=== PATIENT | male | born 2000 | race Caucasian/White ===

== ENCOUNTER 2022-02-06 17:49 | Inpatient (IN) | payer MEDICAID ==
[~2022-02-06] VITALS: Ht 175.3 cm; Wt 53.2 kg
[2022-02-06 18:33] LABS: Basophils # (auto) 0.1 10 ^3/uL (0-0.2); Basophils % (auto) 1.1 % (0.0-2.0); Eosinophils # (auto) 0 10 ^3/uL (0-0.8); Eosinophils % (auto) 0.7 % (0.0-7.0); Hematocrit 45.8 % (41.0-53.0); Lymphocytes # (auto) 1.5 10 ^3/uL (0.4-5.4); Mean Corpuscular Hgb Conc. 34.8 g/dL (32.0-36.0); Mean Corpuscular Volume 86.2 fL (80.0-100.0); Monocytes # (auto) 0.3 10 ^3/uL (0-1.3); Monocytes % (auto) 5.4 % (0.0-12.0); Neutrophils # (auto) 4.4 10 ^3/uL (1.6-8.6); Neutrophils % (auto) 68.8 % (37.0-80.0); Red Blood Cells 5.32 10^6/uL (4.5-5.90); Red Cell Distribution Width 12.7 % (11.8-14.3); White Blood Cell 6.3 10^3/uL (4.4-10.8)
[2022-02-06] MEDS ORDERED: SODIUM CHLORIDE 0.9% 1,000 ML IV ONE (18:45)
[2022-02-06 18:50] LABS: Albumin 3.6 g/dL (3.4-5.0); Calcium 8.4 mg/dL (8.5-10.1); Potassium 3.7 mmol/L (3.5-5.1)
[2022-02-06 18:54] LABS: Bilirubin, Total 1.4 mg/dL (0.2-1.0)
[2022-02-06 18:59] LABS: BUN/Creatinine Ratio 7.8
[2022-02-06 19:18] LABS: Urine Bacteria NONE SEEN /hpf (None Seen); Urine Blood Negative /uL (Negative); Urine Specific Gravity 1.042 (1.001-1.035); Urine WBC 2 /hpf (0 - 3)
[2022-02-06 19:22] LABS: Alcohol, Urine < 3.0 mg/dL (0-10); Amphetamine Screen, Urine NEGATIVE (NEGATIVE); Barbiturate Scree,Urine NEGATIVE (NEGATIVE); Benzodiazephine Screen, Urine NEGATIVE (NEGATIVE); Cannabinoid Screen, Urine NEGATIVE (NEGATIVE); Cocaine Screen, Urine NEGATIVE (NEGATIVE); Opiate Scree,Urine NEGATIVE (NEGATIVE); Phencyclidine Screen, Urine NEGATIVE (NEGATIVE)
[2022-02-06] MEDS ORDERED: metroNIDAZOLE 500MG/100ML 100 ML IV ONE (19:45)
[2022-02-06] MEDS ORDERED: PIPERACILLIN-TAZOB 3.375GM 100 ML IV ONE (19:45)
[2022-02-07] MEDS ORDERED: ONDANSETRON HCL 4 MG/2 ML VIAL IV PRN (00:45)
[2022-02-07] MEDS ORDERED: TEMAZEPAM 15 MG CAP PO PRN (00:45)
[2022-02-07] MEDS ORDERED: DEXTROSE (50%) 50ML SYRG IV PRN (00:45)
[2022-02-07] MEDS ORDERED: ACETAMINOPHEN 325 MG TAB PO PRN (00:45)
[2022-02-07] MEDS ORDERED: HYDROcodone-ACET 5/325MG TAB PO PRN (00:45)
[2022-02-07] MEDS: InsuLIN REG 1unit/0.01ml Soln (100units/ml) SC SCH ×6 (04:16→23:25)
[2022-02-07] MEDS: ACCU-CHEK COMFORT CURVE STRIP VI SCH ×6 (04:16→23:10)
[2022-02-07] MEDS: metroNIDAZOLE 500MG/100ML 100 ML IV SCH ×3 (06:06→22:25)
[2022-02-07] MEDS ORDERED: SODIUM CHLORIDE 0.9% 1,000 ML IV SCH (07:00)
[2022-02-07] MEDS: PANTOPRAZOLE 40 MG TAB PO SCH (09:49)
[2022-02-07 16:43] VITALS: BP 123/82
[2022-02-07] MEDS ORDERED: INSU100I44 SC (16:55)
[2022-02-07] MEDS ORDERED: INSUINJ37 SC (16:55)
[2022-02-07] MEDS: SODIUM CHLORIDE 0.9% 1,000 ML IV SCH ×2 (18:07→22:30)
[2022-02-07] MEDS ORDERED: INSULIN LANTUS (GLARGINE) 1 /0.01ml (100units/ml) SC SCH (22:00)
[2022-02-08] MEDS: ACCU-CHEK COMFORT CURVE STRIP VI SCH ×4 (04:26→16:00)
[2022-02-08] MEDS: InsuLIN REG 1unit/0.01ml Soln (100units/ml) SC SCH ×4 (04:35→16:38)
[2022-02-08 05:00] VITALS: BP 104/73
[2022-02-08] MEDS: metroNIDAZOLE 500MG/100ML 100 ML IV SCH ×2 (05:31→16:24)
[2022-02-08] MEDS: SODIUM CHLORIDE 0.9% 1,000 ML IV SCH (05:32)
[2022-02-08] MEDS: PANTOPRAZOLE 40 MG TAB PO SCH (08:06)
[2022-02-08 08:39] VITALS: BP 119/86
[2022-02-08 10:51] LABS: Basophils # (auto) 0 10 ^3/uL (0-0.2); Basophils % (auto) 0.8 % (0.0-2.0); Eosinophils # (auto) 0.1 10 ^3/uL (0-0.8); Eosinophils % (auto) 1.3 % (0.0-7.0); Hemoglobin 13.7 g/dL (13.5-17.5); Lymphocytes # (auto) 1.2 10 ^3/uL (0.4-5.4); Lymphocytes % (auto) 25.1 % (10.0-50.0); Mean Corpuscular Hemoglobin 30.2 pg (28.0-32.0); Mean Corpuscular Hgb Conc. 36.2 g/dL (32.0-36.0); Mean Corpuscular Volume 83.6 fL (80.0-100.0); Monocytes # (auto) 0.3 10 ^3/uL (0-1.3); Monocytes % (auto) 6.8 % (0.0-12.0); Neutrophils # (auto) 3.1 10 ^3/uL (1.6-8.6); Red Blood Cells 4.54 10^6/uL (4.5-5.90); Red Cell Distribution Width 12.8 % (11.8-14.3); White Blood Cell 4.7 10^3/uL (4.4-10.8)
[2022-02-08 11:08] LABS: Calcium 8.1 mg/dL (8.5-10.1); Potassium 3.2 mmol/L (3.5-5.1)
[2022-02-08 11:10] LABS: BUN/Creatinine Ratio 28.9
[2022-02-08] MEDS ORDERED: POTASSIUM EFFERVESENT TAB 25 MEQ PO ONE (12:15)
[2022-02-08 13:00] VITALS: BP 109/77
[2022-02-08] MEDS ORDERED: CIPR500T4 PO (13:38)
[2022-02-08] MEDS ORDERED: METR500T PO (13:38)
[2022-02-08 16:49] VITALS: BP 109/77
[2022-02-08 17:00] VITALS: BP 117/77
[2022-02-08 17:20] VITALS: BP 109/77
== END 2022-02-08 18:35 | disposition home or self-care (01) | DRG 249 ==
LOC: ER 17:52 → OVERFLOW 02-07 00:47 → WEST WING 02-07 15:59
PROVIDERS: ADMIT Nurse Practitioner; ATTEND Nurse Practitioner Acute Care
DX: K52.9 Noninfective gastroenteritis and colitis, unspecified (principal); R64 Cachexia; Z20.822 Contact with and (suspected) exposure to COVID-19; E10.65 Type 1 diabetes mellitus with hyperglycemia; E86.0 Dehydration; Z68.1 Body mass index [BMI] 19.9 or less, adult; Z91.14 Patient's other noncompliance with medication regimen
CPT/HCPCS: 36415; 74176; 80048; 80053; 80307; 81001; 82962; 83036; 83605; 83690; 85025; 87040; 87045; 87426; 87427; 87493; 96361; 96365; 96368; G0378; J1815; J2543; J3490

== ENCOUNTER 2022-04-03 19:44 | Emergency (ER) | payer OTHER, MEDICAID ==
[~2022-04-03] VITALS: Ht 177.8 cm; Wt 45.5 kg
[~2022-04-03 19:44] MED LIST: CIPR500T4 PO; INSU100I44 SC; INSUINJ37 SC; METR500T PO
[2022-04-03 20:44] VITALS: BP 103/68
[2022-04-03] MEDS ORDERED: SODIUM CHLORIDE 0.9% 1,000 ML IV ONE ×2 (20:45)
[2022-04-03] MEDS ORDERED: CLINDAMYCIN 600 MG/4 ML VL IM ONE (21:00)
[2022-04-03] MEDS ORDERED: cefTRIAXone SOD 1,000 MG VL IM ONE (21:00)
[2022-04-03] MEDS ORDERED: CLINDAMYCIN HCL 150 MG CAP PO ONE (21:15)
[2022-04-03 21:56] LABS: Basophils # (auto) 0.1 10 ^3/uL (0-0.2); Basophils % (auto) 0.9 % (0.0-2.0); Eosinophils # (auto) 0.1 10 ^3/uL (0-0.8); Eosinophils % (auto) 1.5 % (0.0-7.0); Hematocrit 42.8 % (41.0-53.0); Hemoglobin 14.9 g/dL (13.5-17.5); Lymphocytes # (auto) 1.3 10 ^3/uL (0.4-5.4); Lymphocytes % (auto) 15.9 % (10.0-50.0); Mean Corpuscular Hemoglobin 30.4 pg (28.0-32.0); Mean Corpuscular Hgb Conc. 34.9 g/dL (32.0-36.0); Mean Corpuscular Volume 86.9 fL (80.0-100.0); Monocytes # (auto) 0.6 10 ^3/uL (0-1.3); Monocytes % (auto) 8.1 % (0.0-12.0); Neutrophils # (auto) 5.9 10 ^3/uL (1.6-8.6); Neutrophils % (auto) 73.6 % (37.0-80.0); Red Blood Cells 4.92 10^6/uL (4.5-5.90); Red Cell Distribution Width 13.3 % (11.8-14.3)
[2022-04-03 22:12] LABS: Albumin 3.5 g/dL (3.4-5.0); Calcium 8.8 mg/dL (8.5-10.1); Potassium 3.7 mmol/L (3.5-5.1)
[2022-04-03 22:18] LABS: BUN/Creatinine Ratio 7.1; Total Protein 6.3 g/dL (6.4-8.2)
[2022-04-04] MEDS ORDERED: CLIN150C PO (02:11)
[2022-04-04] MEDS ORDERED: CEPH-510 PO (02:11)
[2022-04-04] MEDS ORDERED: INSULIN LANTUS (GLARGINE) 1 /0.01ml (100units/ml) SC ONE (02:15)
[2022-04-04] MEDS ORDERED: DEXTROSE (50%) 50ML SYRG IV PRN (02:15)
[2022-04-04] MEDS ORDERED: InsuLIN R (HUMAN) 100 UNITS in SODIUM CHL 0.9% 99 ML IV SCH (02:15)
[2022-04-04] MEDS ORDERED: ACCU-CHEK COMFORT CURVE STRIP VI SCH (03:00)
[2022-04-05] MEDS ORDERED: INSULIN LANTUS (GLARGINE) 1 /0.01ml (100units/ml) SC SCH (10:00)
== END 2022-04-04 03:14 | disposition left against medical advice (07) ==
LOC: ER 19:44
DX: K02.9 Dental caries, unspecified (principal); E11.65 Type 2 diabetes mellitus with hyperglycemia; Z79.899 Other long term (current) drug therapy; Z79.84 Long term (current) use of oral hypoglycemic drugs
CPT/HCPCS: 36415; 80053; 82010; 82962; 85025; 96372; 99283; J0696; J1815

== ENCOUNTER 2022-04-10 15:13 | Emergency (ER) | payer OTHER, MEDICAID ==
[~2022-04-10] VITALS: Ht 177.8 cm; Wt 50.0 kg
[~2022-04-10 15:13] MED LIST changes: +CEPH-510 PO; +CLIN150C PO
[2022-04-10 16:20] LABS: Basophils # (auto) 0.1 10 ^3/uL (0-0.2); Basophils % (auto) 0.6 % (0.0-2.0); Eosinophils # (auto) 0 10 ^3/uL (0-0.8); Eosinophils % (auto) 0.2 % (0.0-7.0); Hematocrit 42.5 % (41.0-53.0); Hemoglobin 14.2 g/dL (13.5-17.5); Lymphocytes # (auto) 0.6 10 ^3/uL (0.4-5.4); Lymphocytes % (auto) 6.6 % (10.0-50.0); Mean Corpuscular Hemoglobin 29.8 pg (28.0-32.0); Mean Corpuscular Hgb Conc. 33.4 g/dL (32.0-36.0); Mean Corpuscular Volume 89.4 fL (80.0-100.0); Monocytes # (auto) 0.5 10 ^3/uL (0-1.3); Neutrophils # (auto) 7.6 10 ^3/uL (1.6-8.6); Neutrophils % (auto) 86.6 % (37.0-80.0); Nucleated Red Blood Cells % 0.1 %; Red Blood Cells 4.76 10^6/uL (4.5-5.90); Red Cell Distribution Width 13.2 % (11.8-14.3); White Blood Cell 8.8 10^3/uL (4.4-10.8)
[2022-04-10] MEDS ORDERED: MORPHINE SULFATE 4 MG/ML SYR/VIAL IV ONE (16:30)
[2022-04-10] MEDS ORDERED: CLINDAMYCIN 600MG IV 50 ML IV ONE (16:30)
[2022-04-10] MEDS ORDERED: ONDANSETRON HCL 4 MG/2 ML VIAL IV ONE (16:30)
[2022-04-10] MEDS ORDERED: InsuLIN REG 1unit/0.01ml Soln (100units/ml) IV ONE (16:30)
[2022-04-10] MEDS ORDERED: SODIUM CHLORIDE 0.9% 1,000 ML IV ONE ×2 (16:30→21:30)
[2022-04-10 17:11] LABS: BUN/Creatinine Ratio 13.1; Bilirubin, Total 0.9 mg/dL (0.2-1.0); Calcium 8.9 mg/dL (8.5-10.1); Potassium 4.2 mmol/L (3.5-5.1)
[2022-04-10 17:12] LABS: Total Protein 6.9 g/dL (6.4-8.2)
[2022-04-10 19:21] LABS: Urine WBC None Seen /hpf (0 - 3)
[2022-04-10 19:35] LABS: Urine Bacteria NONE SEEN /hpf (None Seen); Urine Blood Negative /uL (Negative); Urine Specific Gravity 1.036 (1.001-1.035)
[2022-04-10] MEDS ORDERED: DEXTROSE (50%) 50ML SYRG IV PRN (19:45)
[2022-04-10] MEDS ORDERED: INSULIN LANTUS (GLARGINE) 1 /0.01ml (100units/ml) SC ONE (19:45)
[2022-04-10] MEDS ORDERED: InsuLIN R (HUMAN) 100 UNITS in SODIUM CHL 0.9% 99 ML IV SCH ×2 (19:45→20:15)
[2022-04-10] MEDS ORDERED: IOHEXOL 350 MG/ML 100ML IJ ONE (19:56)
[2022-04-10] MEDS ORDERED: InsuLIN REG 1unit/0.01ml Soln (100units/ml) ONE (20:25)
[2022-04-10] MEDS: ACCU-CHEK COMFORT CURVE STRIP VI SCH ×2 (21:13→22:43)
[2022-04-11] MEDS: ACCU-CHEK COMFORT CURVE STRIP VI SCH ×4 (00:28→04:34)
[2022-04-11] MEDS ORDERED: ONDANSETRON HCL 4 MG/2 ML VIAL IV ONE (00:30)
[2022-04-11] MEDS ORDERED: HYDROmorphone HCL 2 MG/ML VL/or syr IV ONE (00:30)
[2022-04-11 02:10] LABS: Albumin 2.4 g/dL (3.4-5.0); BUN/Creatinine Ratio 17.1; Calcium 8.2 mg/dL (8.5-10.1)
[2022-04-11 02:13] LABS: Bilirubin, Total 0.5 mg/dL (0.2-1.0); Total Protein 5.6 g/dL (6.4-8.2)
[2022-04-11] MEDS ORDERED: POTASSIUM CHL 20MEQ/100ML 100 ML IV ONE (03:15)
[2022-04-11] MEDS ORDERED: POTASSIUM CHL 20 Meq TABLET PO ONE (03:15)
[2022-04-11] MEDS ORDERED: LACTATED RINGER'S 1,000 ML IV ONE (03:15)
[2022-04-11] MEDS ORDERED: DEXTROSE (50%) 50ML SYRG IV PRN (04:45)
[2022-04-11 04:50] VITALS: BP 110/74
[2022-04-11] MEDS ORDERED: ACCU-CHEK COMFORT CURVE STRIP VI SCH (08:00)
[2022-04-11] MEDS ORDERED: InsuLIN REG 1unit/0.01ml Soln (100units/ml) SC SCH (08:00)
[2022-04-11] MEDS ORDERED: INSULIN LANTUS (GLARGINE) 1 /0.01ml (100units/ml) SC SCH (10:00)
== END 2022-04-11 05:25 | disposition short-term general hospital (02) ==
LOC: ER 15:13
DX: E11.65 Type 2 diabetes mellitus with hyperglycemia (principal); K12.2 Cellulitis and abscess of mouth; Z79.4 Long term (current) use of insulin; Z79.2 Long term (current) use of antibiotics; Z79.899 Other long term (current) drug therapy
CPT/HCPCS: 36415; 70491; 80053; 81001; 82010; 82962; 83605; 83735; 85025; 87040; 96365; 96366; 96368; 96375; 96376; 99285; J1170; J1815; J2270; J2405; J3480; J3490; Q9967

== ENCOUNTER 2022-06-27 22:37 | Inpatient (IN) | payer MEDICAID ==
[~2022-06-27] VITALS: Ht 172.7 cm; Wt 54.0 kg
[2022-06-27 23:28] LABS: Basophils # (auto) 0.1 10 ^3/uL (0-0.2); Basophils % (auto) 1.3 % (0.0-2.0); Eosinophils # (auto) 0 10 ^3/uL (0-0.8); Eosinophils % (auto) 0.4 % (0.0-7.0); Hematocrit 41.5 % (41.0-53.0); Hemoglobin 13.4 g/dL (13.5-17.5); Lymphocytes # (auto) 0.8 10 ^3/uL (0.4-5.4); Lymphocytes % (auto) 14.6 % (10.0-50.0); Mean Corpuscular Hgb Conc. 32.4 g/dL (32.0-36.0); Mean Corpuscular Volume 92.6 fL (80.0-100.0); Monocytes # (auto) 0.2 10 ^3/uL (0-1.3); Monocytes % (auto) 3.9 % (0.0-12.0); Neutrophils # (auto) 4.1 10 ^3/uL (1.6-8.6); Neutrophils % (auto) 79.8 % (37.0-80.0); Nucleated Red Blood Cells % 0.1 %; Red Blood Cells 4.48 10^6/uL (4.5-5.90); Red Cell Distribution Width 13.7 % (11.8-14.3); White Blood Cell 5.2 10^3/uL (4.4-10.8)
[2022-06-27 23:39] LABS: Albumin 3.2 g/dL (3.4-5.0); Calcium 8.2 mg/dL (8.5-10.1); Potassium 4.4 mmol/L (3.5-5.1)
[2022-06-27 23:42] LABS: Bilirubin, Total 1.2 mg/dL (0.2-1.0); Total Protein 6.4 g/dL (6.4-8.2)
[2022-06-27] MEDS ORDERED: SODIUM CHLORIDE 0.9% 1,000 ML IV ONE ×2 (23:45)
[2022-06-27 23:56] LABS: Urine Bacteria NONE SEEN /hpf (None Seen); Urine Blood Negative /uL (Negative); Urine Specific Gravity 1.032 (1.001-1.035); Urine WBC <1 /hpf (0 - 3)
[2022-06-28 00:02] LABS: BUN/Creatinine Ratio 17.4 (10.0-20.0)
[2022-06-28] MEDS ORDERED: INSULIN LANTUS (GLARGINE) 1 /0.01ml (100units/ml) SC ONE ×2 (01:00→11:45)
[2022-06-28] MEDS ORDERED: DEXTROSE (50%) 50ML SYRG IV PRN ×2 (01:00→04:45)
[2022-06-28] MEDS ORDERED: InsuLIN R (HUMAN) 100 UNITS in SODIUM CHL 0.9% 99 ML IV SCH (01:00)
[2022-06-28] MEDS: ACCU-CHEK COMFORT CURVE STRIP VI SCH ×5 (01:18→22:03)
[2022-06-28] MEDS ORDERED: InsuLIN REG 1unit/0.01ml Soln (100units/ml) ONE (01:26)
[2022-06-28] MEDS ORDERED: MORPHINE SULFATE INJ 2 MG/ml SYRG IV ONE (03:30)
[2022-06-28] MEDS ORDERED: ONDANSETRON HCL 4 MG/2 ML VIAL IV PRN (04:45)
[2022-06-28] MEDS ORDERED: ACETAMINOPHEN 325 MG TAB PO PRN (04:45)
[2022-06-28] MEDS: cefTRIAXone 1GM/50ML D5W 50 ML IV SCH (05:20)
[2022-06-28] MEDS ORDERED: CLINDAMYCIN 600MG IV 50 ML IV SCH (06:00)
[2022-06-28] MEDS: CLINDAMYCIN 300MG IV 100 ML IV SCH ×2 (07:04→15:03)
[2022-06-28] MEDS ORDERED: ACCU-CHEK COMFORT CURVE STRIP VI SCH (08:00)
[2022-06-28] MEDS ORDERED: InsuLIN REG 1unit/0.01ml Soln (100units/ml) SC SCH ×2 (08:00→22:00)
[2022-06-28] MEDS: HYDROcodone-ACET 5/325MG TAB PO PRN ×2 (08:02→12:19)
[2022-06-28] MEDS ORDERED: VANCOMYCIN 1GM/250ML 250 ML IV ONE (16:15)
[2022-06-28] MEDS ORDERED: VANCOMYCIN PER PHARMACY 0 MG IV SCH (16:15)
[2022-06-28] MEDS: InsuLIN REG 1unit/0.01ml Soln (100units/ml) SC SCH (17:02)
[2022-06-28] MEDS: MORPHINE SULFATE INJ 2 MG/ml SYRG IV PRN (18:12)
[2022-06-28] MEDS: VANCOMYCIN 750mg/250ml 250 ML IV SCH (23:57)
[2022-06-29] MEDS: HYDROcodone-ACET 5/325MG TAB PO PRN ×3 (00:05→21:03)
[2022-06-29] MEDS: MORPHINE SULFATE INJ 2 MG/ml SYRG IV PRN ×2 (03:12→16:59)
[2022-06-29 05:10] LABS: Basophils # (auto) 0.1 10 ^3/uL (0-0.2); Basophils % (auto) 0.9 % (0.0-2.0); Eosinophils # (auto) 0.1 10 ^3/uL (0-0.8); Eosinophils % (auto) 0.9 % (0.0-7.0); Hematocrit 34.7 % (41.0-53.0); Hemoglobin 12.4 g/dL (13.5-17.5); Lymphocytes # (auto) 1.5 10 ^3/uL (0.4-5.4); Lymphocytes % (auto) 20.7 % (10.0-50.0); Mean Corpuscular Hemoglobin 30.4 pg (28.0-32.0); Mean Corpuscular Hgb Conc. 35.7 g/dL (32.0-36.0); Mean Corpuscular Volume 85.2 fL (80.0-100.0); Monocytes # (auto) 0.4 10 ^3/uL (0-1.3); Monocytes % (auto) 5.3 % (0.0-12.0); Neutrophils # (auto) 5.3 10 ^3/uL (1.6-8.6); Neutrophils % (auto) 72.2 % (37.0-80.0); Nucleated Red Blood Cells % 0.2 %; Red Blood Cells 4.07 10^6/uL (4.5-5.90); Red Cell Distribution Width 13.1 % (11.8-14.3); White Blood Cell 7.3 10^3/uL (4.4-10.8)
[2022-06-29 05:27] LABS: Albumin 2.5 g/dL (3.4-5.0); Calcium 7.6 mg/dL (8.5-10.1); Potassium 3.9 mmol/L (3.5-5.1)
[2022-06-29 05:32] LABS: Bilirubin, Total 0.6 mg/dL (0.2-1.0)
[2022-06-29] MEDS: ACCU-CHEK COMFORT CURVE STRIP VI SCH ×4 (06:39→21:09)
[2022-06-29] MEDS: InsuLIN REG 1unit/0.01ml Soln (100units/ml) SC SCH ×4 (06:45→21:12)
[2022-06-29] MEDS: cefTRIAXone 1GM/50ML D5W 50 ML IV SCH (07:54)
[2022-06-29] MEDS ORDERED: INSULIN LANTUS (GLARGINE) 1 /0.01ml (100units/ml) SC SCH (10:00)
[2022-06-29 12:28] VITALS: BP 103/71
[2022-06-29 13:00] VITALS: BP 103/71
[2022-06-29] MEDS: VANCOMYCIN 750mg/250ml 250 ML IV SCH ×2 (13:38→22:34)
[2022-06-29 17:00] VITALS: BP 97/63
[2022-06-29] MEDS ORDERED: INSULIN LANTUS (GLARGINE) 1 /0.01ml (100units/ml) SC ONE (17:00)
[2022-06-29] MEDS ORDERED: DEXTROSE (50%) 50ML SYRG IV PRN ×2 (17:15→17:30)
[2022-06-29 22:00] VITALS: BP 104/75
[2022-06-29] MEDS ORDERED: ACCU-CHEK COMFORT CURVE STRIP VI SCH (22:00)
[2022-06-29] MEDS ORDERED: InsuLIN REG 1unit/0.01ml Soln (100units/ml) SC SCH (22:00)
[2022-06-30] MEDS: MORPHINE SULFATE INJ 2 MG/ml SYRG IV PRN ×3 (02:44→23:19)
[2022-06-30 05:00] VITALS: BP 111/76
[2022-06-30] MEDS: ACCU-CHEK COMFORT CURVE STRIP VI SCH ×4 (06:33→21:56)
[2022-06-30] MEDS: InsuLIN REG 1unit/0.01ml Soln (100units/ml) SC SCH ×5 (06:40→21:58)
[2022-06-30] MEDS: HYDROcodone-ACET 5/325MG TAB PO PRN ×2 (06:41→18:46)
[2022-06-30 06:43] LABS: Basophils # (auto) 0 10 ^3/uL (0-0.2); Eosinophils # (auto) 0 10 ^3/uL (0-0.8); Hematocrit 35.6 % (41.0-53.0); Hemoglobin 12.3 g/dL (13.5-17.5); Lymphocytes # (auto) 1.2 10 ^3/uL (0.4-5.4); Lymphocytes % (auto) 27.7 % (10.0-50.0); Mean Corpuscular Hemoglobin 29.9 pg (28.0-32.0); Mean Corpuscular Hgb Conc. 34.5 g/dL (32.0-36.0); Mean Corpuscular Volume 86.4 fL (80.0-100.0); Monocytes # (auto) 0.3 10 ^3/uL (0-1.3); Monocytes % (auto) 6.5 % (0.0-12.0); Neutrophils # (auto) 2.8 10 ^3/uL (1.6-8.6); Neutrophils % (auto) 63.8 % (37.0-80.0); Nucleated Red Blood Cells % 0.1 %; Red Blood Cells 4.12 10^6/uL (4.5-5.90); Red Cell Distribution Width 13.4 % (11.8-14.3); White Blood Cell 4.4 10^3/uL (4.4-10.8)
[2022-06-30 06:47] LABS: BUN/Creatinine Ratio 20.4 (10.0-20.0); Calcium 8.1 mg/dL (8.5-10.1); Potassium 3.6 mmol/L (3.5-5.1)
[2022-06-30] MEDS: cefTRIAXone 1GM/50ML D5W 50 ML IV SCH (08:49)
[2022-06-30] MEDS: VANCOMYCIN 750mg/250ml 250 ML IV SCH ×3 (08:50→22:06)
[2022-06-30 09:00] VITALS: BP 109/73
[2022-06-30] MEDS: INSULIN LANTUS (GLARGINE) 1 /0.01ml (100units/ml) SC SCH (10:00)
[2022-06-30 11:50] LABS: Hepatitis B Core IgM Negative
[2022-06-30 11:51] LABS: Hepatitis A Ab IgM Negative; Hepatitis C Antibody Negative (Negative)
[2022-06-30 13:24] VITALS: BP 116/84
[2022-06-30 17:00] VITALS: BP 109/60
[2022-06-30 22:00] VITALS: BP 102/71
[2022-07-01 05:00] VITALS: BP 104/68
[2022-07-01 06:07] LABS: Basophils # (auto) 0 10 ^3/uL (0-0.2); Eosinophils # (auto) 0 10 ^3/uL (0-0.8); Eosinophils % (auto) 0.9 % (0.0-7.0); Hematocrit 36.4 % (41.0-53.0); Hemoglobin 12.9 g/dL (13.5-17.5); Lymphocytes # (auto) 1.2 10 ^3/uL (0.4-5.4); Lymphocytes % (auto) 26.4 % (10.0-50.0); Mean Corpuscular Hemoglobin 29.9 pg (28.0-32.0); Mean Corpuscular Hgb Conc. 35.3 g/dL (32.0-36.0); Mean Corpuscular Volume 84.6 fL (80.0-100.0); Monocytes # (auto) 0.2 10 ^3/uL (0-1.3); Monocytes % (auto) 5.5 % (0.0-12.0); Neutrophils % (auto) 66.2 % (37.0-80.0); Nucleated Red Blood Cells % 0.1 %; Red Cell Distribution Width 13.5 % (11.8-14.3); White Blood Cell 4.5 10^3/uL (4.4-10.8)
[2022-07-01 06:23] LABS: BUN/Creatinine Ratio 23.8 (10.0-20.0); Calcium 8.1 mg/dL (8.5-10.1); Potassium 3.9 mmol/L (3.5-5.1)
[2022-07-01] MEDS: VANCOMYCIN 750mg/250ml 250 ML IV SCH (06:36)
[2022-07-01] MEDS: ACCU-CHEK COMFORT CURVE STRIP VI SCH ×2 (06:36→11:30)
[2022-07-01] MEDS: InsuLIN REG 1unit/0.01ml Soln (100units/ml) SC SCH ×2 (06:43→12:26)
[2022-07-01 09:00] VITALS: BP 113/77
[2022-07-01] MEDS: cefTRIAXone 1GM/50ML D5W 50 ML IV SCH (09:20)
[2022-07-01] MEDS ORDERED: DOXY-332 PO (09:52)
[2022-07-01] MEDS ORDERED: INSUINJ37 SC (09:52)
[2022-07-01] MEDS: HYDROcodone-ACET 5/325MG TAB PO PRN (09:54)
[2022-07-01] MEDS: INSULIN LANTUS (GLARGINE) 1 /0.01ml (100units/ml) SC SCH (10:00)
[2022-07-01 13:00] VITALS: BP 117/83
[2022-07-01] MEDS ORDERED: VANCOMYCIN 1GM/250ML 250 ML IV SCH (14:00)
== END 2022-07-01 16:05 | disposition home or self-care (01) | DRG 383 ==
LOC: ER 22:37 → OVERFLOW 06-28 04:36 → CENTRAL 06-29 11:56
PROVIDERS: ADMIT Nurse Practitioner; ATTEND Internal Medicine Pulmonary Disease
DX: L03.211 Cellulitis of face (principal); R64 Cachexia; L02.01 Cutaneous abscess of face; E10.65 Type 1 diabetes mellitus with hyperglycemia; L03.031 Cellulitis of right toe; L03.032 Cellulitis of left toe; L60.0 Ingrowing nail; Z20.822 Contact with and (suspected) exposure to COVID-19; Z79.4 Long term (current) use of insulin; Z91.199 Patient's noncompliance with other medical treatment and regimen due to unspecified reason; Z80.3 Family history of malignant neoplasm of breast; Z83.3 Family history of diabetes mellitus; Z68.1 Body mass index [BMI] 19.9 or less, adult
CPT/HCPCS: 36415; 70360; 70486; 76536; 76705; 80048; 80053; 80074; 80202; 81001; 82962; 83036; 83605; 83880; 85025; 87077; 87205; 87426; 96361; 96365; 96366; 96372; 96375; 99291; G0378; J0696; J1815; J2405; J3490

== ENCOUNTER 2022-07-14 16:06 | Inpatient (IN) | payer MEDICAID, OTHER ==
[~2022-07-14] VITALS: Ht 177.8 cm; Wt 53.0 kg
[~2022-07-14 16:06] MED LIST changes: -CEPH-510 PO; -CIPR500T4 PO; -CLIN150C PO; +DOXY-332 PO; -METR500T PO
[2022-07-14] MEDS ORDERED: SODIUM CHLORIDE 0.9% 2,000 ML IV ONE (17:00)
[2022-07-14 17:09] LABS: Basophils # (auto) 0.1 10 ^3/uL (0-0.2); Basophils % (auto) 1.2 % (0.0-2.0); Eosinophils # (auto) 0 10 ^3/uL (0-0.8); Eosinophils % (auto) 0.5 % (0.0-7.0); Hematocrit 42.6 % (41.0-53.0); Hemoglobin 13.6 g/dL (13.5-17.5); Lymphocytes # (auto) 0.7 10 ^3/uL (0.4-5.4); Lymphocytes % (auto) 10.4 % (10.0-50.0); Mean Corpuscular Hemoglobin 29.5 pg (28.0-32.0); Mean Corpuscular Volume 92.2 fL (80.0-100.0); Monocytes # (auto) 0.2 10 ^3/uL (0-1.3); Monocytes % (auto) 3.2 % (0.0-12.0); Neutrophils # (auto) 5.8 10 ^3/uL (1.6-8.6); Neutrophils % (auto) 84.7 % (37.0-80.0); Nucleated Red Blood Cells % 0.1 %; Red Blood Cells 4.62 10^6/uL (4.5-5.90); Red Cell Distribution Width 13.8 % (11.8-14.3); White Blood Cell 6.8 10^3/uL (4.4-10.8)
[2022-07-14 17:23] LABS: Albumin 3.4 g/dL (3.4-5.0); Calcium 8.6 mg/dL (8.5-10.1); Potassium 4.3 mmol/L (3.5-5.1)
[2022-07-14 17:25] LABS: Bilirubin, Total 1.9 mg/dL (0.2-1.0); Total Protein 6.3 g/dL (6.4-8.2)
[2022-07-14 17:49] LABS: BUN/Creatinine Ratio 12.2 (10.0-20.0)
[2022-07-14] MEDS ORDERED: DEXTROSE (50%) 50ML SYRG IV PRN (18:15)
[2022-07-14] MEDS ORDERED: InsuLIN R (HUMAN) 100 UNITS in SODIUM CHL 0.9% 99 ML IV SCH (18:15)
[2022-07-14 18:56] LABS: Urine Bacteria NONE SEEN /hpf (None Seen); Urine Blood Negative /uL (Negative); Urine Mucus FEW (None Seen); Urine Specific Gravity 1.032 (1.001-1.035); Urine WBC <1 /hpf (0 - 3)
[2022-07-14] MEDS ORDERED: ACETAMINOPHEN 500 MG TAB PO ONE (19:30)
[2022-07-14] MEDS ORDERED: ACETAMINOPHEN 325 MG TAB PO ONE (19:30)
[2022-07-14] MEDS ORDERED: ACCU-CHEK COMFORT CURVE STRIP VI SCH ×2 (19:30→20:30)
[2022-07-14] MEDS: D5W/SOD CHL 0.45%/KCL 20MEQ 1,000 ML IV SCH (19:37)
[2022-07-14 19:38] LABS: Calcium 8.6 mg/dL (8.5-10.1); Potassium 4.6 mmol/L (3.5-5.1)
[2022-07-14] MEDS ORDERED: NITROGLYCERIN 0.4 MG SL TAB SL PRN (20:15)
[2022-07-14] MEDS ORDERED: MORPHINE SULFATE INJ 2 MG/ml SYRG IV PRN (20:15)
[2022-07-14] MEDS ORDERED: ACETAMINOPHEN 325 MG TAB PO PRN (20:15)
[2022-07-14] MEDS ORDERED: PANTOPRAZOLE 40 MG/10 ML VIAL INJ IV ONE (20:15)
[2022-07-14 20:28] LABS: BUN/Creatinine Ratio 12.8 (10.0-20.0)
[2022-07-14] MEDS: ACCU-CHEK COMFORT CURVE STRIP VI SCH ×2 (20:45→22:56)
[2022-07-15] MEDS: ACCU-CHEK COMFORT CURVE STRIP VI SCH ×9 (00:28→20:18)
[2022-07-15] MEDS: HYDROcodone-ACET 5/325MG TAB PO PRN ×4 (00:35→21:59)
[2022-07-15 01:21] LABS: Albumin 2.9 g/dL (3.4-5.0); BUN/Creatinine Ratio 13.3 (10.0-20.0); Calcium 8.2 mg/dL (8.5-10.1); Potassium 3.2 mmol/L (3.5-5.1)
[2022-07-15 01:24] LABS: Total Protein 5.6 g/dL (6.4-8.2)
[2022-07-15] MEDS: D5W/SOD CHL 0.45%/KCL 20MEQ 1,000 ML IV SCH (02:52)
[2022-07-15 06:29] LABS: Basophils # (auto) 0.1 10 ^3/uL (0-0.2); Basophils % (auto) 1.5 % (0.0-2.0); Eosinophils # (auto) 0.1 10 ^3/uL (0-0.8); Eosinophils % (auto) 1.8 % (0.0-7.0); Hematocrit 36.5 % (41.0-53.0); Lymphocytes # (auto) 1.7 10 ^3/uL (0.4-5.4); Lymphocytes % (auto) 23.4 % (10.0-50.0); Mean Corpuscular Hgb Conc. 35.7 g/dL (32.0-36.0); Mean Corpuscular Volume 83.8 fL (80.0-100.0); Monocytes # (auto) 0.3 10 ^3/uL (0-1.3); Monocytes % (auto) 4.7 % (0.0-12.0); Neutrophils # (auto) 5.1 10 ^3/uL (1.6-8.6); Neutrophils % (auto) 68.6 % (37.0-80.0); Nucleated Red Blood Cells % 0.1 %; Red Blood Cells 4.35 10^6/uL (4.5-5.90); Red Cell Distribution Width 13.1 % (11.8-14.3); White Blood Cell 7.4 10^3/uL (4.4-10.8)
[2022-07-15 06:44] LABS: Potassium 3.4 mmol/L (3.5-5.1)
[2022-07-15 06:51] LABS: Albumin 2.9 g/dL (3.4-5.0); BUN/Creatinine Ratio 22.9 (10.0-20.0); Calcium 8.4 mg/dL (8.5-10.1)
[2022-07-15 06:54] LABS: Total Protein 5.4 g/dL (6.4-8.2)
[2022-07-15] MEDS ORDERED: DEXTROSE (50%) 50ML SYRG IV PRN (07:00)
[2022-07-15] MEDS ORDERED: D5W/SOD CHLO 0.9% 1,000 ML IV SCH (07:00)
[2022-07-15] MEDS ORDERED: POTASSIUM CHL 20 Meq TABLET PO ONE (07:00)
[2022-07-15] MEDS: InsuLIN REG 1unit/0.01ml Soln (100units/ml) SC SCH ×4 (08:27→20:19)
[2022-07-15] MEDS: PANTOPRAZOLE 40 MG/10 ML VIAL INJ IV SCH (10:36)
[2022-07-15] MEDS: SOD CHL 0.45% WITH 20MEQ KCL 1,000 ML IV SCH (12:22)
[2022-07-15] MEDS: INSULIN LANTUS (GLARGINE) 1 /0.01ml (100units/ml) SC SCH (12:24)
[2022-07-15 12:34] LABS: Albumin 2.6 g/dL (3.4-5.0); Potassium 3.6 mmol/L (3.5-5.1)
[2022-07-15 12:38] LABS: BUN/Creatinine Ratio 16.2 (10.0-20.0); Bilirubin, Total 1.4 mg/dL (0.2-1.0)
[2022-07-15] MEDS ORDERED: DIPHENOXYLATE W/ATROPINE 2.5 MG TAB PO PRN (13:15)
[2022-07-15] MEDS ORDERED: INSU-567 XX (13:20)
[2022-07-15] MEDS: FLORASTOR (S. BOULARDII) 250 MG CAP PO SCH (14:00)
[2022-07-15 22:00] VITALS: BP 100/73
[2022-07-16] MEDS: ACCU-CHEK COMFORT CURVE STRIP VI SCH ×7 (04:19→23:44)
[2022-07-16] MEDS: InsuLIN REG 1unit/0.01ml Soln (100units/ml) SC SCH ×7 (04:19→23:46)
[2022-07-16 05:00] VITALS: BP 149/83
[2022-07-16] MEDS: SOD CHL 0.45% WITH 20MEQ KCL 1,000 ML IV SCH ×3 (06:34→17:30)
[2022-07-16 07:00] LABS: Basophils # (auto) 0 10 ^3/uL (0-0.2); Basophils % (auto) 0.8 % (0.0-2.0); Eosinophils # (auto) 0.1 10 ^3/uL (0-0.8); Eosinophils % (auto) 1.5 % (0.0-7.0); Hematocrit 37.1 % (41.0-53.0); Hemoglobin 13.4 g/dL (13.5-17.5); Lymphocytes # (auto) 1.1 10 ^3/uL (0.4-5.4); Lymphocytes % (auto) 20.9 % (10.0-50.0); Mean Corpuscular Hemoglobin 30.2 pg (28.0-32.0); Mean Corpuscular Volume 83.6 fL (80.0-100.0); Monocytes # (auto) 0.2 10 ^3/uL (0-1.3); Monocytes % (auto) 4.2 % (0.0-12.0); Neutrophils # (auto) 3.9 10 ^3/uL (1.6-8.6); Neutrophils % (auto) 72.6 % (37.0-80.0); Nucleated Red Blood Cells % 0.1 %; Red Blood Cells 4.44 10^6/uL (4.5-5.90); Red Cell Distribution Width 13.1 % (11.8-14.3); White Blood Cell 5.4 10^3/uL (4.4-10.8)
[2022-07-16 07:27] LABS: Potassium 3.6 mmol/L (3.5-5.1)
[2022-07-16 07:35] LABS: Albumin 2.8 g/dL (3.4-5.0); Bilirubin, Total 0.7 mg/dL (0.2-1.0); Calcium 7.8 mg/dL (8.5-10.1); Total Protein 5.6 g/dL (6.4-8.2)
[2022-07-16] MEDS: HYDROcodone-ACET 5/325MG TAB PO PRN ×3 (08:16→20:23)
[2022-07-16 09:00] VITALS: BP 109/80
[2022-07-16] MEDS: FLORASTOR (S. BOULARDII) 250 MG CAP PO SCH (09:33)
[2022-07-16] MEDS: PANTOPRAZOLE 40 MG/10 ML VIAL INJ IV SCH (09:33)
[2022-07-16] MEDS: INSULIN LANTUS (GLARGINE) 1 /0.01ml (100units/ml) SC SCH (09:40)
[2022-07-16 12:49] VITALS: BP 90/50
[2022-07-16 17:46] VITALS: BP 95/66
[2022-07-16 18:50] LABS: Albumin 3.2 g/dL (3.4-5.0); Calcium 8.5 mg/dL (8.5-10.1)
[2022-07-16 18:53] LABS: BUN/Creatinine Ratio 9.4 (10.0-20.0); Bilirubin, Total 0.7 mg/dL (0.2-1.0); Total Protein 6.4 g/dL (6.4-8.2)
[2022-07-16 22:00] VITALS: BP 115/76
[2022-07-17] MEDS: HYDROcodone-ACET 5/325MG TAB PO PRN (01:42)
[2022-07-17] MEDS: SOD CHL 0.45% WITH 20MEQ KCL 1,000 ML IV SCH ×3 (03:38→23:30)
[2022-07-17] MEDS: ACCU-CHEK COMFORT CURVE STRIP VI SCH ×5 (04:39→20:00)
[2022-07-17] MEDS: InsuLIN REG 1unit/0.01ml Soln (100units/ml) SC SCH ×5 (04:40→21:51)
[2022-07-17 05:00] VITALS: BP 96/76
[2022-07-17 06:00] VITALS: BP 107/73
[2022-07-17] MEDS: PANTOPRAZOLE 40 MG/10 ML VIAL INJ IV SCH (10:24)
[2022-07-17] MEDS: FLORASTOR (S. BOULARDII) 250 MG CAP PO SCH (10:26)
[2022-07-17] MEDS: INSULIN LANTUS (GLARGINE) 1 /0.01ml (100units/ml) SC SCH (10:30)
[2022-07-17] MEDS: MORPHINE SULFATE INJ 2 MG/ml SYRG IV PRN ×2 (10:40→21:41)
[2022-07-17 13:17] VITALS: BP 101/67
[2022-07-17 17:41] VITALS: BP 105/72
[2022-07-17 22:00] VITALS: BP 112/78
[2022-07-18] MEDS: InsuLIN REG 1unit/0.01ml Soln (100units/ml) SC SCH ×5 (00:01→15:41)
[2022-07-18] MEDS: ACCU-CHEK COMFORT CURVE STRIP VI SCH ×5 (00:01→15:41)
[2022-07-18 05:00] VITALS: BP 99/57
[2022-07-18] MEDS: SOD CHL 0.45% WITH 20MEQ KCL 1,000 ML IV SCH (08:25)
[2022-07-18 09:00] VITALS: BP 107/75
[2022-07-18] MEDS: FLORASTOR (S. BOULARDII) 250 MG CAP PO SCH (09:06)
[2022-07-18] MEDS: MORPHINE SULFATE INJ 2 MG/ml SYRG IV PRN (09:07)
[2022-07-18] MEDS: INSULIN LANTUS (GLARGINE) 1 /0.01ml (100units/ml) SC SCH (10:41)
[2022-07-18 13:00] VITALS: BP_SYST 116; BP_SYST 123; BP_DIAS 68; BP_DIAS 79
[2022-07-18 17:00] VITALS: BP 108/18
== END 2022-07-18 17:15 | disposition home or self-care (01) | DRG 420 ==
LOC: ER 16:06 → OVERFLOW 20:04 → WEST WING 07-15 15:15
PROVIDERS: ADMIT Nurse Practitioner Family; ATTEND Nurse Practitioner Acute Care
DX: E10.10 Type 1 diabetes mellitus with ketoacidosis without coma (principal); E44.0 Moderate protein-calorie malnutrition; Z20.822 Contact with and (suspected) exposure to COVID-19; M27.2 Inflammatory conditions of jaws; R19.7 Diarrhea, unspecified; R74.01 Elevation of levels of liver transaminase levels; Z79.4 Long term (current) use of insulin; Z79.899 Other long term (current) drug therapy; Z79.2 Long term (current) use of antibiotics; Z68.1 Body mass index [BMI] 19.9 or less, adult; Z91.14 Patient's other noncompliance with medication regimen
CPT/HCPCS: 36415; 36600; 80048; 80053; 81001; 82010; 82805; 82962; 83605; 83930; 84100; 84484; 85025; 87040; 87045; 87081; 87426; 87427; 87493; 93005; 96361; 96365; 96367; C9113; G0378; J1815

== ENCOUNTER 2023-03-15 14:35 | Inpatient (IN) | payer MEDICAID ==
[~2023-03-15] VITALS: Ht 180.3 cm; Wt 67.6 kg
[~2023-03-15 14:35] MED LIST changes: -DOXY-332 PO; +INSU-567 XX; -INSU100I44 SC; +INSU100I54 SC
[2023-03-15] MEDS ORDERED: HYDROcodone-ACET 10/325MG TAB PO ONE (15:15)
[2023-03-15 15:48] LABS: Basophils # (auto) 0.1 10 ^3/uL (0-0.2); Eosinophils # (auto) 0.1 10 ^3/uL (0-0.8); Hemoglobin 10.4 g/dL (13.5-17.5); Lymphocytes # (auto) 1.4 10 ^3/uL (0.4-5.4); Monocytes # (auto) 0.5 10 ^3/uL (0-1.3); White Blood Cell 8.3 10^3/uL (4.4-10.8)
[2023-03-15 15:49] LABS: Basophils % (auto) 1.3 % (0.0-2.0); Eosinophils % (auto) 1.6 % (0.0-7.0); Hematocrit 31.3 % (41.0-53.0); Lymphocytes % (auto) 16.5 % (10.0-50.0); Mean Corpuscular Hemoglobin 27.6 pg (28.0-32.0); Mean Corpuscular Hgb Conc. 33.3 g/dL (32.0-36.0); Mean Corpuscular Volume 82.9 fL (80.0-100.0); Monocytes % (auto) 5.8 % (0.0-12.0); Neutrophils # (auto) 6.2 10 ^3/uL (1.6-8.6); Neutrophils % (auto) 74.8 % (37.0-80.0); Red Blood Cells 3.78 10^6/uL (4.5-5.90); Red Cell Distribution Width 14.3 % (11.8-14.3)
[2023-03-15] MEDS ORDERED: KETOROLAC TROMETH 30 MG/ML 1ML VIAL IV ONE (16:15)
[2023-03-15] MEDS ORDERED: SODIUM CHLORIDE 0.9% 1,000 ML IV ONE (16:15)
[2023-03-15 16:22] LABS: Alanine Aminotransferase 20 U/L (7-40); Alkaline Phosphatase 203 U/L (46-116); Anion Gap 6 (5-15); Aspartate Aminotransferase 18 U/L (13-40); BUN/Creatinine Ratio 6.9 (10.0-20.0); Blood Urea Nitrogen 11 mg/dL (9-23); Calcium 9.1 mg/dL (8.7-10.4); Carbon Dioxide 23 mmol/L (20-30); Chloride 103 mmol/L (98-107); Glucose 323 mg/dL (74-106); Lipase 25 U/L (12-53); Sodium 132 mmol/L (136-145)
[2023-03-15 16:23] LABS: Albumin 3.9 g/dL (3.2-4.8); Bilirubin, Total 0.3 mg/dL (0.2-1.0); Total Protein 7.1 g/dL (5.7-8.2)
[2023-03-15 16:35] LABS: Lactic Acid w/Reflex 2.8 mmol/L (0.4-2.0)
[2023-03-15 23:29] VITALS: PULSE 85; RESP 12; O2SAT 99
[2023-03-16] MEDS ORDERED: HYDROcodone-ACET 10/325MG TAB PO ONE (00:15)
[2023-03-16] MEDS: SODIUM CHLORIDE 0.9% 1,000 ML IV ONE ×2 (00:30→00:48)
[2023-03-16] MEDS ORDERED: InsuLIN REG 1unit/0.01ml Soln (100units/ml) IV ONE (00:30)
[2023-03-16 02:04] LABS: Amphetamine Screen, Urine Neg (NEGATIVE); Barbiturate Scree,Urine Neg (NEGATIVE); Benzodiazephine Screen, Urine Neg (NEGATIVE); Cannabinoid Screen, Urine Neg (NEGATIVE); Cocaine Screen, Urine Neg (NEGATIVE); Opiate Scree,Urine Neg (NEGATIVE); Phencyclidine Screen, Urine Neg (NEGATIVE)
[2023-03-16 02:23] LABS: Urine Bacteria NONE SEEN /hpf (None Seen); Urine Blood Negative /uL (Negative); Urine Clarity Clear (Clear); Urine Color Colorless (Yellow); Urine Protein, UAD Negative (Negative); Urine Specific Gravity 1.025 (1.001-1.035); Urine Urobilinogen Normal (Negative); Urine WBC <1 /hpf (0 - 3)
[2023-03-16] MEDS ORDERED: DEXTROSE (50%) 50ML SYRG IV PRN (02:45)
[2023-03-16] MEDS ORDERED: ONDANSETRON HCL 4 MG/2 ML VIAL IV PRN (02:45)
[2023-03-16] MEDS ORDERED: ACETAMINOPHEN 325 MG TAB PO PRN (02:45)
[2023-03-16] MEDS ORDERED: TEMAZEPAM 15 MG CAP PO PRN (02:45)
[2023-03-16] MEDS: ACCU-CHEK COMFORT CURVE STRIP VI SCH ×5 (05:12→20:29)
[2023-03-16] MEDS: InsuLIN REG 1unit/0.01ml Soln (100units/ml) SC SCH ×5 (05:13→21:04)
[2023-03-16] MEDS: CLINDAMYCIN 600MG IV 50 ML IV SCH ×3 (05:14→20:28)
[2023-03-16 07:35] VITALS: PULSE 85; RESP 14; O2SAT 99
[2023-03-16] MEDS: HYDROcodone-ACET 5/325MG TAB PO PRN ×2 (08:20→14:47)
[2023-03-16 09:51] VITALS: BP_SYST 112; BP_SYST 133; BP_DIAS 73; BP_DIAS 97; PULSE 107; PULSE 85; RESP 14; RESP 16; TEMP 97.7; TEMP 97.9; O2SAT 96; O2SAT 99
[2023-03-16] MEDS ORDERED: TAMS-35 PO (12:26)
[2023-03-16] MEDS ORDERED: FLUC100T34 PO (12:26)
[2023-03-16] MEDS ORDERED: AMOX250T8 PO (12:26)
[2023-03-16] MEDS ORDERED: SULF400T11 PO (12:26)
[2023-03-16] MEDS ORDERED: VANCOMYCIN 1GM/200ML 250 ML IV ONE (12:45)
[2023-03-16] MEDS ORDERED: VANCOMYCIN PER PHARMACY 0 MG IV SCH (12:45)
[2023-03-16 13:00] VITALS: BP 121/80; PULSE 99; RESP 17; TEMP 97.7; O2SAT 98
[2023-03-16 16:46] VITALS: BP_SYST 111; BP_SYST 121; BP_DIAS 65; BP_DIAS 80; PULSE 84; PULSE 95; RESP 14; RESP 16; TEMP 97.9; O2SAT 100; O2SAT 98
[2023-03-16] MEDS: HYDROcodone-ACET 10/325MG TAB PO PRN (17:11)
[2023-03-16 20:00] VITALS: RESP 16
[2023-03-16 22:00] VITALS: BP 104/75; PULSE 115; RESP 16; TEMP 97.8; O2SAT 98
[2023-03-17] MEDS: InsuLIN REG 1unit/0.01ml Soln (100units/ml) SC SCH ×6 (00:03→20:44)
[2023-03-17 04:38] VITALS: BP 111/71; PULSE 101; RESP 16; TEMP 97.9; O2SAT 99
[2023-03-17] MEDS: ACCU-CHEK COMFORT CURVE STRIP VI SCH ×6 (04:49→20:39)
[2023-03-17] MEDS: CLINDAMYCIN 600MG IV 50 ML IV SCH ×3 (04:49→20:38)
[2023-03-17] MEDS: HYDROcodone-ACET 10/325MG TAB PO PRN ×4 (06:06→20:37)
[2023-03-17] MEDS: VANCOMYCIN 1GM/200ML 250 ML IV SCH ×2 (06:07→18:55)
[2023-03-17 07:15] LABS: Anion Gap 8 (5-15); Carbon Dioxide 22 mmol/L (20-30); Chloride 108 mmol/L (98-107); Potassium 4.2 mmol/L (3.5-5.1); Sodium 138 mmol/L (136-145)
[2023-03-17 07:16] LABS: Calcium 8.7 mg/dL (8.5-10.1)
[2023-03-17 07:20] LABS: Alkaline Phosphatase 151 U/L (46-116)
[2023-03-17 07:21] LABS: BUN/Creatinine Ratio 8.6 (10.0-20.0); Blood Urea Nitrogen 10 mg/dL (9-23); Glucose 276 mg/dL (74-106)
[2023-03-17 07:22] LABS: Albumin 3.3 g/dL (3.2-4.8)
[2023-03-17 07:23] LABS: Aspartate Aminotransferase 17 U/L (13-40); Bilirubin, Total 0.2 mg/dL (0.2-1.0); Total Protein 5.9 g/dL (5.7-8.2)
[2023-03-17 07:32] LABS: Alanine Aminotransferase 15 U/L (7-40)
[2023-03-17 07:38] LABS: Basophils # (auto) 0.1 10 ^3/uL (0-0.2); Basophils % (auto) 1.5 % (0.0-2.0); Eosinophils # (auto) 0.1 10 ^3/uL (0-0.8); Eosinophils % (auto) 2.2 % (0.0-7.0); Hematocrit 27.4 % (41.0-53.0); Lymphocytes # (auto) 1.1 10 ^3/uL (0.4-5.4); Lymphocytes % (auto) 16.6 % (10.0-50.0); Mean Corpuscular Hemoglobin 27.3 pg (28.0-32.0); Mean Corpuscular Hgb Conc. 32.7 g/dL (32.0-36.0); Mean Corpuscular Volume 83.3 fL (80.0-100.0); Monocytes # (auto) 0.4 10 ^3/uL (0-1.3); Monocytes % (auto) 6.2 % (0.0-12.0); Neutrophils # (auto) 4.8 10 ^3/uL (1.6-8.6); Neutrophils % (auto) 73.5 % (37.0-80.0); Red Blood Cells 3.28 10^6/uL (4.5-5.90); Red Cell Distribution Width 14.5 % (11.8-14.3); White Blood Cell 6.5 10^3/uL (4.4-10.8)
[2023-03-17 08:00] VITALS: BP 107/71; PULSE 97; RESP 18; TEMP 97.7; O2SAT 98
[2023-03-17 09:00] VITALS: BP 107/71; PULSE 97; RESP 18; TEMP 97.7; O2SAT 98
[2023-03-17 13:00] VITALS: BP 98/62; PULSE 95; RESP 18; TEMP 98.1; O2SAT 100
[2023-03-17 17:00] VITALS: BP 101/69; PULSE 98; RESP 16; TEMP 98.7; O2SAT 98
[2023-03-17 22:00] VITALS: BP 98/58; PULSE 103; RESP 17; TEMP 98.3; O2SAT 97
[2023-03-18] MEDS: ACCU-CHEK COMFORT CURVE STRIP VI SCH ×7 (00:26→23:40)
[2023-03-18] MEDS: InsuLIN REG 1unit/0.01ml Soln (100units/ml) SC SCH ×7 (00:31→23:43)
[2023-03-18] MEDS: HYDROcodone-ACET 10/325MG TAB PO PRN ×4 (03:58→23:43)
[2023-03-18] MEDS: CLINDAMYCIN 600MG IV 50 ML IV SCH ×3 (03:59→20:08)
[2023-03-18 04:51] VITALS: BP 101/57; PULSE 104; RESP 16; TEMP 97.3; O2SAT 98
[2023-03-18] MEDS: VANCOMYCIN 1GM/200ML 250 ML IV SCH (05:00)
[2023-03-18 08:00] VITALS: PULSE 91; RESP 20; O2SAT 97
[2023-03-18 09:00] VITALS: BP 108/77; PULSE 91; RESP 20; TEMP 98.1; O2SAT 97
[2023-03-18] MEDS ORDERED: DEXTROSE (50%) 50ML SYRG IV PRN (10:45)
[2023-03-18 12:20] VITALS: BP 139/64; PULSE 77; RESP 18; TEMP 97.6; O2SAT 98
[2023-03-18 12:59] VITALS: BP 139/64; PULSE 77; RESP 18; TEMP 97.6; O2SAT 98
[2023-03-18 20:00] VITALS: O2SAT 97
[2023-03-19] MEDS: ACCU-CHEK COMFORT CURVE STRIP VI SCH ×6 (03:51→23:57)
[2023-03-19] MEDS: CLINDAMYCIN 600MG IV 50 ML IV SCH ×3 (03:56→20:21)
[2023-03-19] MEDS: InsuLIN REG 1unit/0.01ml Soln (100units/ml) SC SCH ×8 (04:02→23:59)
[2023-03-19 04:53] VITALS: BP 116/79; PULSE 96; RESP 16; TEMP 98.2; O2SAT 98
[2023-03-19] MEDS: HYDROcodone-ACET 10/325MG TAB PO PRN ×3 (06:47→17:58)
[2023-03-19 08:00] VITALS: BP 112/79; PULSE 103; RESP 20; TEMP 98; O2SAT 97
[2023-03-19] MEDS: VANCOMYCIN 1GM/200ML 250 ML IV SCH (09:40)
[2023-03-19 13:00] VITALS: BP 119/81; PULSE 101; RESP 19; TEMP 98; O2SAT 96
[2023-03-19 16:43] VITALS: BP 115/81; PULSE 111; RESP 19; TEMP 98.6; O2SAT 99
[2023-03-19 20:00] VITALS: O2SAT 97
[2023-03-19 22:00] VITALS: BP 102/74; PULSE 78; RESP 16; TEMP 97.6; O2SAT 98
[2023-03-20] MEDS: HYDROcodone-ACET 10/325MG TAB PO PRN ×3 (00:02→23:19)
[2023-03-20] MEDS: VANCOMYCIN 1GM/200ML 250 ML IV SCH (01:31)
[2023-03-20] MEDS ORDERED: INSULIN LANTUS (GLARGINE) 1 /0.01ml (100units/ml) SC ONE (01:45)
[2023-03-20] MEDS: ACCU-CHEK COMFORT CURVE STRIP VI SCH ×6 (04:09→23:23)
[2023-03-20] MEDS: CLINDAMYCIN 600MG IV 50 ML IV SCH (04:13)
[2023-03-20] MEDS: InsuLIN REG 1unit/0.01ml Soln (100units/ml) SC SCH ×6 (04:17→23:23)
[2023-03-20 05:00] VITALS: BP 101/71; PULSE 102; RESP 16; TEMP 97.4; O2SAT 100
[2023-03-20 08:00] VITALS: BP 107/64; PULSE 104; RESP 20; TEMP 98.3; O2SAT 97
[2023-03-20] MEDS ORDERED: levoFLOXacin 500MG 100 ML IV ONE (11:15)
[2023-03-20 12:00] VITALS: BP 111/77; PULSE 92; RESP 20; TEMP 98.2; O2SAT 97
[2023-03-20 14:49] LABS: COVID19 ANTIGEN SOFIA FIA NEGATIVE (NEGATIVE)
[2023-03-20 16:00] VITALS: BP 123/86; PULSE 89; RESP 20; TEMP 98.5; O2SAT 97
[2023-03-20] MEDS: HYDROcodone-ACET 5/325MG TAB PO PRN (17:09)
[2023-03-20 22:00] VITALS: BP 124/86; PULSE 100; RESP 16; TEMP 98.6; O2SAT 98
[2023-03-20] MEDS ORDERED: INSULIN LANTUS (GLARGINE) 1 /0.01ml (100units/ml) SC SCH (22:00)
[2023-03-21] MEDS: InsuLIN REG 1unit/0.01ml Soln (100units/ml) SC SCH ×4 (04:00→16:00)
[2023-03-21] MEDS: ACCU-CHEK COMFORT CURVE STRIP VI SCH ×4 (04:36→16:09)
[2023-03-21 05:01] VITALS: BP 151/81; PULSE 94; RESP 16; TEMP 97.1; O2SAT 96
[2023-03-21] MEDS: HYDROcodone-ACET 10/325MG TAB PO PRN (06:50)
[2023-03-21 08:50] VITALS: BP 114/79; PULSE 90; RESP 17; TEMP 98.2; O2SAT 98
[2023-03-21] MEDS ORDERED: levoFLOXacin 500MG 100 ML IV SCH (10:00)
[2023-03-21 13:00] VITALS: BP 121/82; PULSE 108; RESP 18; TEMP 98.3; O2SAT 95
[2023-03-21] MEDS: HYDROcodone-ACET 5/325MG TAB PO PRN (16:07)
[2023-03-21 16:40] VITALS: BP 114/79; PULSE 90; RESP 17; TEMP 36.8; O2SAT 98
[2023-03-21 16:50] VITALS: BP 127/94; PULSE 84; RESP 17; TEMP 98.3; O2SAT 99
== END 2023-03-21 19:40 | DRG 720 ==
LOC: ER 14:35 → OVERFLOW 03-16 02:46 → WEST WING 03-16 09:10
PROVIDERS: ADMIT Nurse Practitioner; ATTEND Family Medicine
DX: A41.01 Sepsis due to Methicillin susceptible Staphylococcus aureus (principal); L89.150 Pressure ulcer of sacral region, unstageable; E87.1 Hypo-osmolality and hyponatremia; N13.30 Unspecified hydronephrosis; R71.0 Precipitous drop in hematocrit; L03.113 Cellulitis of right upper limb; E10.65 Type 1 diabetes mellitus with hyperglycemia; K52.9 Noninfective gastroenteritis and colitis, unspecified; Z60.2 Problems related to living alone; Z20.822 Contact with and (suspected) exposure to COVID-19; L03.114 Cellulitis of left upper limb; S41.102A Unspecified open wound of left upper arm, initial encounter; S41.101A Unspecified open wound of right upper arm, initial encounter; X58.XXXA Exposure to other specified factors, initial encounter; Y93.89 Activity, other specified; Y92.89 Other specified places as the place of occurrence of the external cause; Z91.199 Patient's noncompliance with other medical treatment and regimen due to unspecified reason; Y99.8 Other external cause status
CPT/HCPCS: 36415; 71045; 74176; 80053; 80202; 80307; 81001; 82565; 82962; 83036; 83605; 83690; 83880; 84484; 85025; 87040; 87077; 87081; 87186; 87205; 87426; 97110; 97163; G0378; J1815; J1885; J1956; J3490